=== PATIENT | female | born 1955 | race Caucasian/White ===

== ENCOUNTER 2021-12-25 13:58 | Emergency (ER) | payer MEDICARE, OTHER ==
[~2021-12-25] VITALS: Ht 165.1 cm; Wt 77.1 kg
[2021-12-25 14:16] VITALS: BP 132/76
--- NOTE | 2021-12-25 14:40 | NUR ---
[id number] FROM [facility] [place] C/O R 5TH FINGER LAC AND L WRIST PAIN S/P GLF 2 DAYS AGO.
[2021-12-25] MEDS ORDERED: ACETAMINOPHEN 325 MG TABLET ONE (15:25)
[2021-12-25] MEDS ORDERED: ACETAMINOPHEN 325 MG TABLET PO ONE (15:30)
[2021-12-25] MEDS ORDERED: TYL2T PO (16:15)
[2021-12-25] MEDS ORDERED: IBUP-23 PO (16:15)
== END 2021-12-25 16:15 | disposition home or self-care (01) ==
LOC: ER 14:00
DX: S69.92XA Unspecified injury of left wrist, hand and finger(s), initial encounter (principal); S69.91XA Unspecified injury of right wrist, hand and finger(s), initial encounter; M19.90 Unspecified osteoarthritis, unspecified site; W19.XXXA Unspecified fall, initial encounter; Y93.89 Activity, other specified; Y92.89 Other specified places as the place of occurrence of the external cause; Y99.8 Other external cause status
CPT/HCPCS: 73110; 73130-TC